=== PATIENT | female | born 1975 | race Caucasian/White ===

== ENCOUNTER → 2017-10-30 | Outpatient (CLI) | payer MEDICARE, OTHER ==
--- NOTE | 2017-10-31 12:17 | EST ---
EXERCISE STRESS AGE: 42 SEX: F HT: 61" WT: 158 PROTOCOL: Ramírez Stress Test STAGE: 3 DURATION OF EXERCISE: 8:00 HEART RATE REST: 91 BLOOD PRESSURE REST: 112/58 MAXIMUM HEART RATE ACHIEVED: 161 MAXIMUM BLOOD PRESSURE: 151/62 85% MPHR: 152 100% MPHR: 179 METS: 9.5 INDICATIONS: Chest pain. CLINICAL INFORMATION: Patient was exercised for a total period of 8 minutes, a peak heart rate of 161 was achieved. Maximum blood pressure 151/62 mmHg was noted. Patient did not complain of any chest pain during the test, the resting EKG shows normal sinus rhythm with normal IA interval and QRS duration and normal ST-T waves. No ST-segment depression suggestive of ischemia is noted. FINAL IMPRESSION: This exercise test is not suggestive of ischemia. Patient's exercise tolerance is average. Patient did not complain of any chest pain during the test. MMLINL / IJN: [id number] /
== END | disposition home or self-care (01) ==
LOC: RADNMMAIN 11:05
PROVIDERS: ATTEND Family Medicine
DX: R07.9 Chest pain, unspecified (principal)
CPT/HCPCS: 93017

== ENCOUNTER 2019-04-25 12:40 | Inpatient (IN) | payer OTHER ==
[2019-04-25] MEDS ORDERED: SODIUM CHLORIDE 0.9% 1,000 ML IV STA (13:01)
[2019-04-25] MEDS ORDERED: KETOROLAC 30 MG/ML 1 ML VIAL IVP STA (13:01)
--- NOTE | 2019-04-25 13:28 | ED ---
General Adult HPI - General Chief complaint: Fever Stated complaint: chest heaviness/fever Time Seen by Provider: 04/25/19 13:00 Source: patient Mode of arrival: ambulatory Limitations: no limitations - History of Present Illness Initial comments: Dictation was produced using [employer] dictation software. please excuse any grammatical, word or spelling errors. Chief Complaint: 43-year-old female presents with cough, shortness of breath and total body myalgias History of Present Illness: 43-year-old female she presents with cough, weakness and total body pain for the last one week. Patient states his mind she woke up and felt like her symptoms were not improving she decided come to the emergency department. Patient reports she has a history of rheumatoid arthritis however she does not take any immunotherapy medications. Patient denies any other significant comorbidities. She does however report history of pneumonia in the past. Patient denies any abdominal pain. Denies any rash. Denies any sore throat The ROS documented in this emergency department record has been reviewed and confirmed by me. Those systems with pertinent positive or negative responses have been documented in the HPI. All other systems are other negative and/or noncontributory. PHYSICAL EXAM: General Impression: Alert and oriented x3, not in acute distress HEENT: Normocephalic atraumatic, extra-ocular movements intact, pupils equal and reactive to light bilaterally, mucous membranes moist, nonerythematous oropharynx Cardiovascular: Heart regular rate and rhythm, S1&S2 audible, no murmurs, rubs or gallops Chest: Lungs clear to auscultation bilaterally, no rhonchi, no wheeze, no rales Abdomen: Bowel sounds present, abdomen soft, non-tender, non-distended, no organomegaly Musculoskeletal: Pulses present and equal in all extremities, no peripheral edema Motor: no focal deficits noted Neurological: CN II-XII grossly intact, no focal motor or sensory deficits noted Skin: Intact with no visualized rashes Psych: Normal affect and mood ED course: 43-year-old female presents with myalgias, fever and URI type symptoms signs upon arrival shows temperature 12.9, heart rate of 119, so vital signs within acceptable limits Laboratory evaluation obtained. Mild leukocytosis of 10.8. Rest of CBC unremarkable. Metabolic panel is negative. Urinalysis is negative. Flu test is negative. Chest x-rays obtained showing multifocal pneumonia. Patient reevaluated at bedside. Clinical concern for early sepsis secondary to p neumonia. Blood culture sent. Patient treated for community acquired pneumonia. She denies any recent hospitalizations. No HCAP Risk. Discussed patient case with Dr. Richmond who is willing to accept patient's care - Related Data Home Medications Medication Instructions Recorded Confirmed ALPRAZolam [Xanax] 0.5 mg PO HS 04/07/14 06/02/14 Hydrocodone/Acetaminophen [[place] 1 each PO Q8H PRN 04/07/14 06/02/14 10-325] Ibuprofen [Motrin] 800 mg PO Q8HR PRN 05/06/14 06/02/14 [place] 1 tab PO DAILY 06/02/14 06/02/14 Allergies Allergy/AdvReac Type Severity Reaction Status Date / Time morphine Allergy Itching Verified 04/25/19 12:49 Sulfa (Sulfonamide Allergy Rash/Hives Verified 04/25/19 12:49 Antibiotics) sulfamethoxazole Allergy Rash/Hives Verified 04/25/19 12:49 [From Bactrim] trimethoprim [From Bactrim] Allergy Rash/Hives Verified 04/25/19 12:49 Review of Systems ROS Statement: Those systems with pertinent positive or pertinent negative responses have been documented in the HPI. ROS Other: All systems not noted in ROS Statement are negative. Past Medical History Past Medical History: Pneumonia Additional Past Medical History / Comment(s): past hx. pneumonia, IBS, hx migraines, just dx. w/cyst on ovary & thyroid-FU w/family dr this week, also some abn. lab tests History of Any Multi-Drug Resistant Organisms: None Reported Past Surgical History: Back Surgery, Orthopedic Surgery Past Anesthesia/Blood Transfusion Reactions: Motion Sickness, Postoperative Nausea & Vomiting (PONV) Additional Past Anesthesia/Blood Transfusion Reaction / Comment(s): felt like had flu sx. after last pain procedure for 48 hours Past Psychological History: No Psychological Hx Reported Smoking Status: Current every day smoker Past Alcohol Use History: None Reported Past Drug Use History: None Reported General Exam Limitations: no limitations Course Vital Signs 04/25/19 04/25/19 12:46 14:41 Temperature 102.9 F H 101.6 F H Pulse Rate 119 H 112 H Respiratory 18 18 Rate Blood Pressure 130/83 111/69 O2 Sat by Pulse 98 95 Oximetry Medical Decision Making - Lab Data Result diagrams: 04/25/19 13:30 04/25/19 13:30 Lab Results 04/25/19 04/25/19 04/25/19 Range/Units 12:50 13:30 13:30 WBC 10.8 H (3.8-10.6) k/uL RBC 4.61 (3.80-5.40) m/uL Hgb 13.6 (11.4-16.0) gm/dL Hct 41.3 (34.0-46.0) % MCV 89.6 (80.0-100.0) fL MCH 29.4 (25.0-35.0) pg MCHC 32.8 (31.0-37.0) g/dL RDW 12.9 (11.5-15.5) % Plt Count 213 (150-450) k/uL Neutrophils % 89 % Lymphocytes % 7 % Monocytes % 2 % Eosinophils % 1 % Basophils % 0 % Neutrophils # 9.6 H (1.3-7.7) k/uL Lymphocytes # 0.8 L (1.0-4.8) k/uL Monocytes # 0.2 (0-1.0) k/uL Eosinophils # 0.1 (0-0.7) k/uL Basophils # 0.0 (0-0.2) k/uL Sodium 135 L (137-145) mmol/L Potassium 3.7 (3.5-5.1) mmol/L Chloride 104 (98-107) mmol/L Carbon Dioxide 22 (22-30) mmol/L Anion Gap 9 mmol/L BUN 8 (7-17) mg/dL Creatinine 0.66 (0.52-1.04) mg/dL Est GFR (CKD-EPI)AfAm >90 (>60 ml/min/1.73 sqM) Est GFR (CKD-EPI)NonAf >90 (>60 ml/min/1.73 sqM) Glucose 111 H (74-99) mg/dL Plasma Lactic Acid [place] (0.7-2.0) mmol/L Calcium 8.5 (8.4-10.2) mg/dL Urine Color Urine Appearance (Clear) Urine pH (5.0-8.0) Ur Specific [place] (1.001-1.035) Urine Protein (Negative) Urine Glucose (UA) (Negative) Urine Ketones (Negative) Urine Blood (Negative) Urine Nitrite (Negative) Urine Bilirubin (Negative) Urine Urobilinogen (<2.0) mg/dL Ur Leukocyte Esterase (Negative) Urine RBC (0-5) /hpf Urine WBC (0-5) /hpf Ur Squamous Epith Cells (0-4) /hpf Urine Mucus (None) /hpf Influenza Type A RNA Not Detected (Not Detectd) Influenza Type B (PCR) Not Detected (Not Detectd) 04/25/19 04/25/19 Range/Units 13:30 14:30 WBC (3.8-10.6) k/uL RBC (3.80-5.40) m/uL Hgb (11.4-16.0) gm/dL Hct (34.0-46.0) % MCV (80.0-100.0) fL MCH (25.0-35.0) pg MCHC (31.0-37.0) g/dL RDW (11.5-15.5) % Plt Count (150-450) k/uL Neutrophils % % Lymphocytes % % Monocytes % % Eosinophils % % Basophils % % Neutrophils # (1.3-7.7) k/uL Lymphocytes # (1.0-4.8) k/uL Monocytes # (0-1.0) k/uL Eosinophils # (0-0.7) k/uL Basophils # (0-0.2) k/uL Sodium (137-145) mmol/L Potassium (3.5-5.1) mmol/L Chloride (98-107) mmol/L Carbon Dioxide (22-30) mmol/L Anion Gap mmol/L BUN (7-17) mg/dL Creatinine (0.52-1.04) mg/dL Est GFR (CKD-EPI)AfAm (>60 ml/min/1.73 sqM) Est GFR (CKD-EPI)NonAf (>60 ml/min/1.73 sqM) Glucose (74-99) mg/dL Plasma Lactic Acid [place] 2.0 (0.7-2.0) mmol/L Calcium (8.4-10.2) mg/dL Urine Color Light Yellow Urine Appearance Cloudy H (Clear) Urine pH 7.0 (5.0-8.0) Ur Specific [place] 1.014 (1.001-1.035) Urine Protein Negative (Negative) Urine Glucose (UA) Negative (Negative) Urine Ketones Negative (Negative) Urine Blood Trace H (Negative) Urine Nitrite Negative (Negative) Urine Bilirubin Negative (Negative) Urine Urobilinogen <2.0 (<2.0) mg/dL Ur Leukocyte Esterase Negative (Negative) Urine RBC 3 (0-5) /hpf Urine WBC 1 (0-5) /hpf Ur Squamous Epith Cells 1 (0-4) /hpf Urine Mucus Rare H (None) /hpf Influenza Type A RNA (Not Detectd) Influenza Type B (PCR) (Not Detectd) Disposition Clinical Impression: Pneumonia Disposition: ADMITTED IP TO THIS [facility] Condition: Fair Referrals: Stephen Ray DO [Primary Care Provider] - 1-2 days Decision Time: 14:59
[2019-04-25 13:48] LABS: African American GFR (CKD) >90 (>60 ml/min/1.73 sqM); Anion Gap 9 mmol/L; Blood Urea Nitrogen 8 mg/dL (7-17); Calcium 8.5 mg/dL (8.4-10.2); Carbon Dioxide 22 mmol/L (22-30); Chloride 104 mmol/L (98-107); Glucose 111 mg/dL (74-99); Non-African American GFR(CKD) >90 (>60 ml/min/1.73 sqM); Potassium 3.7 mmol/L (3.5-5.1); Sodium 135 mmol/L (137-145)
[2019-04-25 13:50] LABS: Basophils % (A) 0 %; Eosinophils # (A) 0.1 k/uL (0-0.7); Eosinophils % (A) 1 %; HCT 41.3 % (34.0-46.0); HGB 13.6 gm/dL (11.4-16.0); Lymphocytes # (A) 0.8 k/uL (1.0-4.8); Lymphocytes % (A) 7 %; MCH 29.4 pg (25.0-35.0); MCHC 32.8 g/dL (31.0-37.0); MCV 89.6 fL (80.0-100.0); Mean Platelet Volume 8.1; Monocytes # (A) 0.2 k/uL (0-1.0); Monocytes % (A) 2 %; Neutrophils # (A) 9.6 k/uL (1.3-7.7); Neutrophils % (A) 89 %; Platelet Count 213 k/uL (150-450); RBC 4.61 m/uL (3.80-5.40); RDW 12.9 % (11.5-15.5); WBC 10.8 k/uL (3.8-10.6)
--- NOTE | 2019-04-25 14:13 | XR ---
EXAMINATION TYPE: XR chest 2V DATE OF EXAM: 04/25/2019 COMPARISON: 12/30/2015 HISTORY: Cough, weakness and fever TECHNIQUE: Frontal and lateral views of the chest are obtained. FINDINGS: There there are new right perihilar and right basilar opacities. Remainder the lungs are w ell aerated. Cardiomediastinal silhouette is within normal limits. Osseous structures are grossly int act. No pneumothorax or pleural effusion. IMPRESSION: New right perihilar and right basilar opacities most radiographically compatible with mu ltifocal pneumonia.
[2019-04-25 14:39] LABS: Appearance,Urine Cloudy (Clear); Bilirubin,Urine Negative (Negative); Blood,Urine Trace (Negative); Color,Urine Light Yellow; Glucose,Urine (UA) Negative (Negative); Ketones,Urine Negative (Negative); Leukocyte Esterase,Urine Negative (Negative); Mucus,Urine Rare /hpf; Nitrite,Urine Negative (Negative); Protein,Urine Negative (Negative); RBC,Urine 3 /hpf (0-5); Specific Gravity,Urine 1.014 (1.001-1.035); Squamous Epithelial Cell,Urine 1 /hpf (0-4); Urobilinogen,Urine <2.0 mg/dL (<2.0); WBC,Urine 1 /hpf (0-5)
[2019-04-25] MEDS ORDERED: ACETAMINOPHEN TAB 500 MG TAB PO STA (14:43)
[2019-04-25] MEDS ORDERED: AZITHROMYCIN 500 MG in SODIUM CHLORIDE 0.9% 250 ML IVPB STA (14:43)
[2019-04-25] MEDS ORDERED: cefTRIAXone IN SWFI 1,000 MG/10 ML SYRINGE IVP STA (14:43)
[2019-04-25] MEDS ORDERED: PNEUMONIA PROTOCOL UTILIZED 1 EACH MISC PO PRN (14:55)
[2019-04-25] MEDS ORDERED: HYDROcodone/APAP 10-325MG 1 EACH TAB PO PRN (14:56)
[2019-04-25] MEDS ORDERED: KETOROLAC 30 MG/ML 1 ML VIAL IVP SCH (18:00)
[2019-04-25] MEDS: KETOROLAC 30 MG/ML 1 ML VIAL IVP PRN (18:17)
[2019-04-25] MEDS: ALPRAZolam 0.5 MG TAB PO SCH (20:02)
[2019-04-25] MEDS: ACETAMINOPHEN TAB 325 MG TAB PO PRN (22:52)
[2019-04-26] MEDS: ACETAMINOPHEN TAB 325 MG TAB PO PRN ×3 (04:36→22:25)
[2019-04-26] MEDS: KETOROLAC 30 MG/ML 1 ML VIAL IVP PRN ×2 (04:37→17:55)
--- NOTE | 2019-04-26 07:30 | XR ---
EXAMINATION TYPE: XR chest 2V DATE OF EXAM: 04/26/2019 HISTORY: pneumonia. REFERENCE: Previous study dated 04/25/2019. FINDINGS: There is a worsening right basilar infiltrate. There is a small right IMPRESSION: WORSENING RIGHT BASILAR PNEUMONIA WITH A SMALL, CONCOMITANT EFFUSION.
--- NOTE | 2019-04-26 14:06 | P.HPIM ---
History of Present Illness H&P Date: 04/26/19 Chief Complaint: cough, shortness of breath and total body myalgias Patient is a 43-year-old female with a known history of rheumatoid arthritis- currently not on any immunotherapy, hyperlipidemia, GERD, fibromyalgia, IBS and migraine headaches and ongoing nicotine addiction came to ER with complaints of fever, cough, shortness of breath and generalized body aches since last Sunday. Patient was still having fever and her symptoms were not improving which made her to come to the ER. Denied any sore throat. Patient says that her is sick recently with upper respiratory infection but got better. Denied any complaints of chest pain. Patient does have shortness of breath. No nausea vomiting or diarrhea. No abdominal pain. Denied any dysuria or hematuria. Denied any recent travel. Chest x-ray showed new right perihilar and right basilar opacities most r adiographically compatible with multifocal pneumonia. WBC 10.8 UA negative for infection. Influenza PCR negative T-max was 102.9 and patient was tachycardic on admission. Review of Systems Constitutional does have fever or chills . Generalized body aches and malaise. Abdomen: Patient denied nausea vomiting and diarrhea and abdominal pain. Cardiovascular: Patient denies any chest pain or short of breath no palpitations. Respiratory: Patient does have cough without sputum production. Patient does have shortness of breath Neurologic: Patient denied any numbness or tingling headache. Musculoskeletal: Patient denies any complaints of joint swelling or deformity. Skin: Negative Psychiatric: Negative Endocrine: No heat or cold intolerance. No recent weight gain. Genitourinary: No dysuria or hematuria. All other 14 point ROS negative except the above Past Medical History Past Medical History: Pneumonia Additional Past Medical History / Comment(s): past hx. pneumonia, IBS, hx migraines History of Any Multi-Drug Resistant Organisms: None Reported Past Surgical History: Back Surgery, Orthopedic Surgery Past Anesthesia/Blood Transfusion Reactions: Motion Sickness, Postoperative Nausea & Vomiting (PONV) Additional Past Anesthesia/Blood Transfusion Reaction / Comment(s): felt like had flu sx. after last pain procedure for 48 hours Past Psychological History: No Psychological Hx Reported Smoking Status: Current every day smoker Past Alcohol Use History: None Reported Past Drug Use History: None Reported Medications and Allergies Home Medications Medication Instructions Recorded Confirmed Type Ibuprofen [Motrin] 800 mg PO Q8HR PRN 05/06/14 04/25/19 History Omeprazole 20 mg PO DAILY 04/25/19 04/25/19 History Pramipexole [Mirapex] 1 mg PO BID 04/25/19 04/25/19 History Allergies Allergy/AdvReac Type Severity Reaction Status Date / Time morphine Allergy Itching Verified 04/25/19 16:37 Sulfa (Sulfonamide Allergy Rash/Hives Verified 04/25/19 16:37 Antibiotics) sulfamethoxazole Allergy Rash/Hives Verified 04/25/19 16:37 [From Bactrim] trimethoprim [From Bactrim] Allergy Rash/Hives Verified 04/25/19 16:37 Physical Exam Vitals: Vital Signs Temp Pulse Pulse Resp BP BP Pulse Ox 04/26/19 11:40 98.5 F 98 18 99/73 97 04/26/19 08:05 98.0 F 86 18 99/63 93 L 04/26/19 05:47 97.9 F 89 93 L 04/26/19 04:34 101.1 F H 04/26/19 00:00 99.5 F 93 20 104/72 95 04/25/19 23:32 101.0 F H 04/25/19 22:50 102.2 F H 04/25/19 22:20 100.8 F H 04/25/19 19:37 98.3 F 108 H 18 117/75 100 04/25/19 18:36 107 H 04/25/19 15:59 99.3 F 04/25/19 15:38 99.2 F 107 H 18 90/56 92 L 04/25/19 14:41 101.6 F H 112 H 18 111/69 95 04/25/19 12:46 102.9 F H 119 H 18 130/83 98 Intake and Output 04/25/19 04/26/19 04/26/19 22:59 06:59 14:59 Intake Total 1540 300 400 Balance 1540 300 400 Intake: Intake, IV Titration 1000 Amount Sodium Chloride 0.9% 1, 1000 000 ml @ 999 mls/hr IV . Q1H1M STA Rx#:[id number] Oral 540 300 400 Other: Voiding Method Toilet # Voids 2 2 # Bowel Movements 2 Weight 78.925 kg PHYSICAL EXAMINATION: Patient is lying in the bed comfortably, no acute distress, awake alert and oriented.. HEENT: Normocephalic. Neck is supple. Pupils reactive. Nostrils clear. Oral cavity is moist. Ears reveal no drainage. Neck reveals no JVD, carotid bruits, or thyromegaly. CHEST EXAMINATION: Trachea is central. Symmetrical expansion. Right sided crackles and coarse breath sounds. Scattered rhonchi. Nonlabored breathing. CARDIAC: Normal S1, S2 with no gallops. No murmurs ABDOMEN: Soft. Bowel sounds normal. No organomegaly. No abdominal bruits. Extremities: reveal no edema. No clubbing or cyanosis Neurologically awake, alert, oriented x3 with well-coordinated movements. No focal deficits noted Skin: No rash or skin lesions. Psychiatric: Coperative. Nonsuicidal Musculoskeletal: No joint swelling or deformity. Normal range of motion. Results CBC & Chem 7: 04/25/19 13:30 04/25/19 13:30 Labs: Abnormal Lab Results - Last 24 Hours (Table) 04/25/19 04/25/19 04/25/19 Range/Units 13:30 13:30 14:30 WBC 10.8 H (3.8-10.6) k/uL Neutrophils # 9.6 H (1.3-7.7) k/uL Lymphocytes # 0.8 L (1.0-4.8) k/uL Sodium 135 L (137-145) mmol/L Glucose 111 H (74-99) mg/dL Urine Appearance Cloudy H (Clear) Urine Blood Trace H (Negative) Urine Mucus Rare H (None) /hpf Thrombosis Risk Factor Assmnt - DVT/VTE Prophylaxis DVT/VTE Prophylaxis: Pharmacologic Prophylaxis ordered Assessment and Plan Assessment: Acute multifocal pneumonia Possible underlying viral pneumonia cannot be excluded. Influenza PCR negative. Sepsis secondary to above Rheumatoid arthritis currently not on any immunosuppressive therapy. GERD Hyperlipidemia Fibromyalgia Migraine headaches IBS Currently everyday smoker DVT prophylaxis with heparin subcu Plan: Patient will be continued on IV antibiotics in the form of ceftriaxone and azithromycin. Patient was given IV hydration the ER. Currently patient is tolerating oral diet. Fever improving and is currently afebrile. Follow-up culture reports. Patient will be started on DuoNebbreathing treatments and oxygen therapy as needed. Further recommendations based on the clinical course. Smoking cessation has been counseled extensively. Time with Patient: Greater than 30
[2019-04-26] MEDS: AZITHROMYCIN 500 MG TAB PO SCH (15:43)
[2019-04-26] MEDS: HEPARIN SODIUM,PORCINE 5,000 UNIT/ML 1 ML VIAL SQ SCH ×2 (15:48→21:43)
[2019-04-26] MEDS: IPRATROPIUM-ALBUTEROL 3 ML NEB INHALATION PRN ×2 (16:33→19:33)
[2019-04-26] MEDS: SODIUM CHLORIDE 0.9% 1,000 ML IV SCH (20:53)
[2019-04-26] MEDS: ALPRAZolam 0.5 MG TAB PO SCH (21:43)
[2019-04-27] MEDS: IPRATROPIUM-ALBUTEROL 3 ML NEB INHALATION PRN ×5 (00:33→19:44)
[2019-04-27] MEDS: KETOROLAC 30 MG/ML 1 ML VIAL IVP PRN ×3 (02:39→15:09)
[2019-04-27 06:55] LABS: Basophils % (A) 0 %; Eosinophils % (A) 0 %; HCT 36.8 % (34.0-46.0); HGB 12.1 gm/dL (11.4-16.0); Lymphocytes # (A) 1.1 k/uL (1.0-4.8); Lymphocytes % (A) 11 %; MCHC 32.8 g/dL (31.0-37.0); MCV 91.4 fL (80.0-100.0); Mean Platelet Volume 8.1; Monocytes # (A) 0.3 k/uL (0-1.0); Monocytes % (A) 3 %; Neutrophils # (A) 7.9 k/uL (1.3-7.7); Neutrophils % (A) 84 %; Platelet Count 177 k/uL (150-450); RBC 4.03 m/uL (3.80-5.40); RDW 13.2 % (11.5-15.5); WBC 9.4 k/uL (3.8-10.6)
[2019-04-27 07:17] LABS: African American GFR (CKD) >90 (>60 ml/min/1.73 sqM); Anion Gap 7 mmol/L; Blood Urea Nitrogen 9 mg/dL (7-17); Calcium 8.2 mg/dL (8.4-10.2); Carbon Dioxide 22 mmol/L (22-30); Chloride 110 mmol/L (98-107); Glucose 109 mg/dL (74-99); Non-African American GFR(CKD) >90 (>60 ml/min/1.73 sqM); Potassium 3.9 mmol/L (3.5-5.1); Sodium 139 mmol/L (137-145)
[2019-04-27] MEDS: HEPARIN SODIUM,PORCINE 5,000 UNIT/ML 1 ML VIAL SQ SCH ×3 (09:31→20:56)
[2019-04-27] MEDS ORDERED: ONDANSETRON 4 MG/2 ML VIAL IVP PRN (10:49)
[2019-04-27] MEDS: ACETAMINOPHEN TAB 325 MG TAB PO PRN ×2 (11:02→23:46)
[2019-04-27] MEDS: AZITHROMYCIN 500 MG TAB PO SCH (15:00)
[2019-04-27] MEDS: FAMOTIDINE 20 MG TAB PO SCH (20:32)
[2019-04-27] MEDS: ALPRAZolam 0.5 MG TAB PO SCH (20:32)
--- NOTE | 2019-04-27 23:27 | P.PN ---
Subjective Progress Note Date: 04/27/19 Principal diagnosis: multifocal pneumonia Acute viral illness Patient is a 43-year-old female with a known history of rheumatoid arthritis- currently not on any immunotherapy, hyperlipidemia, GERD, fibromyalgia, IBS and migraine headaches and ongoing nicotine addiction came to ER with complaints of fever, cough, shortness of breath and generalized body aches since last Sunday. Patient was still having fever and her symptoms were not improving which made her to come to the ER. Denied any sore throat. Patient says that her is sick recently with upper respiratory infection but got better. Denied any complaints of chest pain. Patient does have shortness of breath. No nausea vomiting or diarrhea. No abdominal pain. Denied any dysuria or hematuria. Denied any recent travel. Chest x-ray showed new right perihilar and right basilar opacities most radiographically compatible with multifocal pneumonia. WBC 10.8 UA negative for infection. Influenza PCR negative T-max was 102.9 and patient was tachycardic on admission. 04/27/2019 patient says that she is feeling weak and nauseated today. Wasn't able to tolerate oral diet in the morning. Patient is still having low-grade fever with T-max of 100.3 Otherwise cultures are negative. Leukocytosis improved. patient says that her is tested positive for influenza and is in the hospital as well. Influenza PCR negative. No complaints of chest pain or worsening shortness of breath. no complaints of abdominal pain. No diarrhea. Patient is being continued on breathing treatments and antibiotics ceftriaxone and azithromycin. No wheezing or rhonchi noted on the exam. Active Medications Acetaminophen (Tylenol Tab) 650 mg PO Q6H PRN PRN Reason: Fever Last Admin: 04/27/19 11:02 Dose: 650 mg Documented by: Albuterol/Ipratropium (Duoneb 0.5 Mg-3 Mg/3 Ml Soln) 3 ml INHALATION RT-Q4H PRN PRN Reason: Shortness Of Breath Or Wheezing Last Admin: 04/27/19 19:44 Dose: 3 ml Documented by: Alprazolam (Xanax) 0.5 mg PO HS TERE Last Admin: 04/27/19 20:32 Dose: 0.5 mg Documented by: Azithromycin (Zithromax) 500 mg PO DAILY@1500 TERE Last Admin: 04/27/19 15:00 Dose: 500 mg Documented by: Famotidine (Pepcid) 20 mg PO BID [facility] Last Admin: 04/27/19 20:32 Dose: 20 mg Documented by: Heparin Sodium (Porcine) (Heparin) 5,000 unit SQ Q8HR [facility] Last Admin: 04/27/19 20:56 Dose: Not Given Documented by: Ceftriaxone Sodium 1 gm/ (Sodium Chloride) 50 mls @ 100 mls/hr IVPB Q24H [facility] Last Admin: 04/27/19 15:00 Dose: 100 mls/hr Documented by: Sodium Chloride (Saline 0.9%) 1,000 mls @ 50 mls/hr IV .Q20H [facility] Last Admin: 04/26/19 20:53 Dose: 20 mls/hr Documented by: Ketorolac Tromethamine (Toradol) 30 mg IVP Q6HR PRN PRN Reason: FEVER AND/OR PAIN Stop: 04/29/19 17:02 Last Admin: 04/27/19 15:09 Dose: 30 mg Documented by: Miscellaneous Information (Pneumonia Protocol Utilized) 1 each PO ONCE PRN PRN Reason: Per Protocol Ondansetron HCl (Zofran) 4 mg IVP Q6HR PRN PRN Reason: Nausea And Vomiting Last Admin: 04/27/19 11:02 Dose: 4 mg Documented by: Objective - Vital Signs Vital signs: Vital Signs Temp 98.1 F 04/27/19 13:52 Pulse 81 04/27/19 13:52 Resp 16 04/27/19 13:52 BP 106/70 04/27/19 13:52 Pulse Ox 94 L 04/27/19 13:52 Intake & Output 04/26/19 04/27/19 04/27/19 18:59 06:59 18:59 Intake Total 700 740 240 Output Total 200 Balance 700 740 40 Intake: Intake, IV Titration 200 Amount Sodium Chloride 0.9% 1, 200 000 ml @ 20 mls/hr IV . Q24H [facility] Rx#:[id number] Oral 700 540 240 Output: Urine 200 Other: # Voids 1 1 1 - Exam PHYSICAL EXAMINATION: Patient is lying in the bed comfortably, no acute distress, awake alert and oriented.lethargic.. HEENT: Normocephalic. Neck is supple. Pupils reactive. Nostrils clear. Oral cavity is moist. Ears reveal no drainage. Neck reveals no JVD, carotid bruits, or thyromegaly. CHEST EXAMINATION: Trachea is central. Symmetrical expansion. bilateraldiffuse fine crackles present. No wheezing. Nonlabored breathing.. CARDIAC: Normal S1, S2 with no gallops. No murmurs ABDOMEN: Soft. Bowel sounds normal. No organomegaly. No abdominal bruits. Extremities: reveal no edema. No clubbing or cyanosis Neurologically awake, alert, oriented x3 with well-coordinated movements. No f ocal deficits noted Skin: No rash or skin lesions. Psychiatric: Coperative. Nonsuicidal Musculoskeletal: No joint swelling or deformity. Normal range of motion. - Labs CBC & Chem 7: 04/27/19 06:07 04/27/19 06:07 Labs: Abnormal Lab Results - Last 24 Hours (Table) 04/27/19 04/27/19 Range/Units 06:07 06:07 Neutrophils # 7.9 H (1.3-7.7) k/uL Chloride 110 H (98-107) mmol/L Glucose 109 H (74-99) mg/dL Calcium 8.2 L (8.4-10.2) mg/dL Microbiology - Last 24 Hours (Table) 04/25/19 14:57 Blood Culture - Preliminary Blood No Growth after 24 hours Assessment and Plan Assessment: Acute multifocal pneumonia Possible underlying viral pneumonia cannot be excluded. Influenza PCR negative. Sepsis secondary to above Rheumatoid arthritis currently not on any immunosuppressive therapy. GERD Hyperlipidemia Fibromyalgia Migraine headaches IBS Currently everyday smoker DVT prophylaxis with heparin subcu Plan: Patient will be continued on IV antibiotics in the form of ceftriaxone and azithromycin. Patient was given IV hydration the ER. Currently patient is tolerating oral diet. Fever improving and is currently afebrile. Follow-up culture reports. Patient will be continued on DuoNebbreathing treatments and oxygen therapy as needed. Further recommendations based on the clinical course. Smoking cessation has been counseled extensively. Time with Patient: Greater than 30
[2019-04-28] MEDS: SODIUM CHLORIDE 0.9% 1,000 ML IV SCH ×2 (01:08→15:51)
[2019-04-28] MEDS: IPRATROPIUM-ALBUTEROL 3 ML NEB INHALATION PRN (07:49)
[2019-04-28] MEDS: HEPARIN SODIUM,PORCINE 5,000 UNIT/ML 1 ML VIAL SQ SCH ×3 (10:30→20:28)
[2019-04-28] MEDS: FAMOTIDINE 20 MG TAB PO SCH (10:30)
[2019-04-28] MEDS: OSELTAMIVIR 75 MG CAP PO SCH ×2 (14:43→20:27)
[2019-04-28] MEDS ORDERED: IBUPROFEN 400 MG TAB PO PRN (15:38)
[2019-04-28] MEDS ORDERED: TEMAZEPAM 15 MG CAP PO PRN (15:39)
[2019-04-28] MEDS ORDERED: BENZOCAINE/MENTHOL LOZENG 1 EACH LOZENGE MUCOUS MEM PRN (15:55)
[2019-04-28] MEDS: PANTOPRAZOLE 40 MG TABLET PO SCH (15:57)
[2019-04-28] MEDS: AZITHROMYCIN 500 MG TAB PO SCH (15:58)
[2019-04-28] MEDS: IPRATROPIUM-ALBUTEROL 3 ML NEB INHALATION SCH ×2 (16:16→21:08)
--- NOTE | 2019-04-28 18:28 | PN ---
PROGRESS NOTE DATE OF SERVICE: 04/28/2019 This 43-year-old woman who was admitted with significant pneumonia on the right side also had possible underlying influenza. The patient's , who is also admitted to the hospital, has tested positive. The patient might have had contact with somebody at work who might have been confirmed with influenza, according to her. There is no history of any fever, rigor, chills. Recent chest x-ray showed some worsening of the right pneumonia with some pleural effusion. Patient has incessant cough. Past medical history reviewed. REVIEW OF SYSTEMS: CARDIOVASCULAR SYSTEM: No angina, palpitations. RESPIRATORY SYSTEM: As mentioned earlier. GI: As mentioned earlier. : No dysuria or retention. NERVOUS SYSTEM: No numbness, weakness. CURRENT MEDICATIONS: Reviewed. They include: 1. Tylenol p.r.n. 2. DuoNeb q.i.d. and p.r.n. 3. Xanax 0.5 at bedtime. 4. Zithromax 500 mg p.o. daily. 5. Pulmicort 1 mg b.i.d. 6. Rocephin 1 gram daily. 7. Perforomist 20 mcg b.i.d. 8. Heparin 5000 units subcutaneously q.8. 9. Ibuprofen 400 mg q.8. 10.Toradol 30 mg q.4. 11.Zofran. 12.Tamiflu 75 mg p.o. b.i.d. 13.Protonix 40 mg daily. 14.Mirapex 1 mg p.o. b.i.d. 15.Restoril 15 mg at bedtime p.r.n. PHYSICAL EXAMINATION: Patient is alert, oriented x3. Pulse is 86, blood pressure 122/81, respirations 17, temperature 100.8, pulse ox 90% on room air. HEENT: Conjunctivae normal. Oral mucosa moist. NECK: No jugular venous distention. No carotid bruit. No lymph node enlargement. CARDIOVASCULAR SYSTEM: S1, S2 muffled. RESPIRATORY SYSTEM: Breath sounds diminished at the bases. Bilateral scattered rhonchi and crackles. ABDOMEN: Soft, non-tender. LEGS: No edema. No swelling. NERVOUS SYSTEM: No focal deficit. LABS: Labs at this time show WBC 9.4, hemoglobin 12.1 and sodium 139, potassium 3.9. ASSESSMENT: 1. Acute right lower lobe pneumonia with possible effusion, with possibly Gram- negative; possibly viral pneumonia. 2. Possible influenza. 3. Possible sepsis secondary to above, present on admission. 4. Rheumatoid arthritis, not on any immunosuppressant therapy. 5. Gastroesophageal reflux disease. 6. Hyperlipidemia. 7. Fibromyalgia. 8. Migraine headaches. 9. History of irritable bowel syndrome. 10.History of continued ongoing nicotine dependence. 11.Deep venous thrombosis prophylaxis. 12.Gastrointestinal prophylaxis. RECOMMENDATIONS AND DISCUSSION: In this 43-year-old woman who presented with multiple complex medical issues, we will monitor the patient closely, continue the current medications, continue with symptomatic treatment. The chest x-ray is slightly worsened today. I would recommend optimizing the bronchodilator treatment. Continue the antibiotics. Obtain cultures. I would also recommend infectious disease and pulmonary consultations. DVT prophylaxis. See orders for further details. Prognosis guarded because of multiple complex medical issues. Empiric Tamiflu is also recommended because of continued fever. Further recommendations to follow. MMODL / IJN: [id number] /
[2019-04-28] MEDS: ALPRAZolam 0.5 MG TAB PO SCH (20:27)
[2019-04-28] MEDS: PRAMIPEXOLE 1 MG TAB PO SCH (20:27)
[2019-04-28] MEDS: FORMOTEROL FUMARATE 20 MCG/2 ML NEBU INHALATION SCH (21:08)
[2019-04-28] MEDS: BUDESONIDE 1 MG/2 ML NEBU INHALATION SCH (21:08)
--- NOTE | 2019-04-28 22:06 | CONS ---
CONSULTATION PULMONARY/CRITICAL CARE CONSULTATION: REASON FOR CONSULTATION: Pneumonia. This is a 43-year-old female who began to get sick last Sunday about a week ago. Her complaints included fever, cough, chest congestion, shortness of breath and body aches. It progressed through the week last week to the point that she got much worse, and on April 25, she ended up coming into the emergency room, where she was evaluated and told that she had pneumonia. Her initial chest x-ray showed a small infiltrate in the right lower lobe, and a more recent chest x-ray shows a more significant infiltrate. There also may be a pleural effusion. The patient is currently just taking a few medications at home, including Prilosec, Xanax, [place], Motrin and dat root. The patient is not feeling any better since when she came into the hospital and may actually feel a bit worse. Again, her complaints included shortness of breath, chest congestion, cough, minimal phlegm production, fever, chills, muscle aches, joint aches. MEDICAL HISTORY: Her medical history is positive for rheumatoid arthritis and acid reflux disease. She currently does not take any medications for her rheumatoid arthritis. She was on Plaquenil for a long period of time, she tells us. She has had a previous episode of pneumonia in the past and also bronchitis in the past. Other medical problems include migraine cephalgia, ovarian cysts, and irritable bowel syndrome. SURGICAL HISTORY: Surgical history includes back surgery and some other orthopedic procedures. SOCIAL HISTORY: Positive for ongoing daily tobacco use. She denies any alcohol or illicit drug use. HOME MEDICATIONS: Mentioned. ALLERGIES: Include MORPHINE, SULFA ANTIBIOTICS AND TRIMETHOPRIM. REVIEW OF SYSTEMS: CONSTITUTIONAL: Fever, chills, muscle aches, joint aches. NEUROLOGIC: Negative. HEENT: Negative. CARDIOVASCULAR: Negative. PULMONARY: Shortness of breath, chest congestion, cough, chest tightness and minimal phlegm production. GI: Negative. : Negative. RHEUMATOLOGIC: Negative. IMMUNOLOGIC: Negative. ENDOCRINOLOGIC: Negative. DERMATOLOGIC: Negative. PHYSICAL EXAMINATION: VITAL SIGNS: Current vital signs are reviewed. Temperature is 100.8, heart rate 96, respiratory rate 17, blood pressure 121/82, mean 95, room-air saturation 90%. GENERAL APPEARANCE: She appears in no acute distress. There is no audible wheezing, conversational dyspnea or use of accessory muscles. HEENT: HEENT examination is grossly unremarkable. Mucous membranes are moist. NECK: Supple. Full range of motion. There is no adenopathy. Neck veins are flat. CARDIOVASCULAR: Cardiovascular examination reveals regular rhythm and rate. Heart rate about 100 beats per minute. S1, S2 normal. No murmur. LUNGS: Lungs reveal coarse diffuse expiratory rhonchi. Breath sounds are equal bilaterally. There is some dullness at the right base. Some bibasilar crackles are also noted. No wheezes. ABDOMEN: Soft. Bowel sounds are heard. EXTREMITIES: Intact. No cyanosis, clubbing or edema. SKIN: Without rash. NEUROLOGIC: Neurologic examination is brief but nonfocal. LABS: Reviewed. White count 9.4, hemoglobin 12.1, hematocrit 36.8, platelet count 177,000. Sodium and potassium normal. Chloride 110. CO2 22. Anion gap is 7. BUN and creatinine were 9 and 0.64. Urine is cloudy. There is trace blood, rare mucus. Influenza studies were negative. Lactic acid was 2. RADIOLOGY: Chest x-ray shows developing and worsening infiltrate at the right lung base. There also may be a right-sided pleural effusion. MEDICATIONS: Medications are reviewed. She is on Zithromax and Rocephin. She is on Xanax, Tylenol, Pepcid, subcutaneous heparin, updrafts and Tamiflu. She did not test positive for influenza. Apparently her significant other and/or tested positive. ASSESSMENT: 1. Community-acquired pneumonia, right lower lobe, with associated right-sided pleural effusion. 2. Possible underlying chronic obstructive pulmonary disease from previous tobacco use. 3. History of rheumatoid arthritis, currently not on immunotherapy. 4. History of irritable bowel syndrome. 5. History of migraine cephalgia. 6. History of gastroesophageal reflux disease. 7. Ongoing tobacco use with nicotine addiction. 8. Previous episodes of both bronchitis and pneumonia. PLAN: I will add some formoterol and Pulmicort. No steroids are necessary. Antibiotics are fine. Will continue to follow. We should put a nicotine patch on this patient. Follow- up chest x-ray in the morning. MMODL / IJN: [id number] /
--- NOTE | 2019-04-28 23:45 | P.CONS ---
History of Present Illness - Reason for Consult Consult date: 04/28/19 pneumonia Requesting physician: Bisi Silverio - Chief Complaint cough and body aches x few days - History of Present Illness Patient is a 43-year-old female presenting to the ER at [facility] on April 25, 2019 with chief complaints of cough generalized body weakness and shortness of breath that has been going on for about a week before she presented to the hospital patient be complaining of fever with rigors and chills no significant urinary symptom no nausea no vomiting no abdominal pain no diarrhea on arrival to the ER the patient did have a fever of 102.9 F patient was tachycardic white count mild elevated 10.8 influenza PCR was nega tive urine was negative patient did have a chest x-ray which showed new right perihilar and right basilar opacity compatible with multifocal pneumonia patient has been treated with Rocephin 1 g daily along with oral Zithromax repeat x-ray and now showing worsening of the pneumonia hence infectious was consulted for further recommendation about antibiotic therapy. Review of Systems Positive point has been mentioned in HPI rest of the systems are negative Past Medical History Past Medical History: Pneumonia Additional Past Medical History / Comment(s): past hx. pneumonia, IBS, hx migraines History of Any Multi-Drug Resistant Organisms: None Reported Past Surgical History: Back Surgery, Orthopedic Surgery Past Anesthesia/Blood Transfusion Reactions: Motion Sickness, Postoperative Nausea & Vomiting (PONV) Additional Past Anesthesia/Blood Transfusion Reaction / Comm: felt like had flu sx. after last pain procedure for 48 hours Past Psychological History: No Psychological Hx Reported Smoking Status: Current every day smoker Past Alcohol Use History: None Reported Past Drug Use History: None Reported Medications and Allergies Home Medications Medication Instructions Recorded Confirmed Type Ibuprofen [Motrin] 800 mg PO Q8HR PRN 05/06/14 04/25/19 History Omeprazole 20 mg PO DAILY 04/25/19 04/25/19 History Pramipexole [Mirapex] 1 mg PO BID 04/25/19 04/25/19 History Allergies Allergy/AdvReac Type Severity Reaction Status Date / Time morphine Allergy Itching Verified 04/25/19 16:37 Sulfa (Sulfonamide Allergy Rash/Hives Verified 04/25/19 16:37 Antibiotics) sulfamethoxazole Allergy Rash/Hives Verified 04/25/19 16:37 [From Bactrim] trimethoprim [From Bactrim] Allergy Rash/Hives Verified 04/25/19 16:37 Physical Exam Vitals: Vital Signs Temp Pulse Pulse Resp BP Pulse Ox 04/28/19 14:25 98.9 F 90 17 121/74 90 L 04/28/19 08:03 96 04/28/19 07:49 100 04/28/19 07:35 100.8 F H 86 17 121/82 90 L 04/28/19 02: 98.6 F 89 90 L 04/28/19 02:09 98.9 F 89 20 115/76 92 L 04/27/19 23:41 102.3 F H 81 93 L 04/27/19 23:09 100.3 F H 87 93 L 04/27/19 22:50 93 L 04/27/19 22:03 98.6 F 87 20 130/74 94 L 04/27/19 21:06 97.8 F 04/27/19 20:20 18 04/27/19 19:55 73 04/27/19 19:44 73 95 Intake and Output 04/28/19 04/28/19 04/28/19 06:59 14:59 22:59 Intake Total 990 Balance 990 Intake: Intake, IV Titration 400 Amount Sodium Chloride 0.9% 1, 400 000 ml @ 50 mls/hr IV . Q20H [facility] Rx#:[id number] Oral 590 Other: Voiding Method Toilet # Voids 1 2 GENERAL DESCRIPTION: Middle-aged female lying in bed, no distress. No tachypnea or accessory muscle of respiration use. HEENT: Shows Pallor , no scleral icterus. Oral mucous membrane is dry. NECK: Trachea central, no thyromegaly. LUNGS: Unlabored breathing. Coarse breath sounds bases bilaterally. No wheeze or crackle. HEART: S1, S2, regular rate and rhythm. ABDOMEN: Soft, no tenderness , guarding or rigidity EXTREMITIES: No edema of feet. SKIN: No rash, no masses palpable. NEUROLOGICAL: The patient is awake, alert, oriented x3, mood and affect normal. Results CBC & Chem 7: 04/27/19 06:07 04/27/19 06:07 Labs: Microbiology - Last 24 Hours (Table) 04/25/19 14:57 Blood Culture - Preliminary Blood No Growth after 48 hours Assessment and Plan Assessment: Patient presented to hospital with sepsis in this patient did have fever tachycardia source is likely right lower lobe pneumonia and likely community- acquired in view of resolution of the fever with Rocephin and Zithromax therapy though the x-ray did not show significant improvement possible hematological daily (1) Pneumonia Current Visit: Yes Status: Acute Code(s): J18.9 - PNEUMONIA, UNSPECIFIED ORGANISM SNOMED Code(s): 103704299 Plan: 1-we will obtain a sputum for Gram stain and culture 2-repeat a chest x-ray PA and lateral in the morning 3-Rocephin 1 g daily and Zithromax 250 p.o. daily We will follow on clinical condition and cultures to further adjust medication if needed Thank you for this consultation we will follow the patient along with you Time with Patient: Greater than 30
[2019-04-29] MEDS: ACETAMINOPHEN TAB 325 MG TAB PO PRN (05:42)
[2019-04-29 07:51] LABS: Basophils % (A) 0 %; Eosinophils # (A) 0.1 k/uL (0-0.7); Eosinophils % (A) 2 %; HCT 37.2 % (34.0-46.0); HGB 12.1 gm/dL (11.4-16.0); Lymphocytes # (A) 1.6 k/uL (1.0-4.8); Lymphocytes % (A) 26 %; MCH 29.1 pg (25.0-35.0); MCHC 32.6 g/dL (31.0-37.0); MCV 89.4 fL (80.0-100.0); Mean Platelet Volume 7.9; Monocytes # (A) 0.3 k/uL (0-1.0); Monocytes % (A) 4 %; Neutrophils # (A) 4.1 k/uL (1.3-7.7); Neutrophils % (A) 65 %; Platelet Count 280 k/uL (150-450); RBC 4.17 m/uL (3.80-5.40); WBC 6.3 k/uL (3.8-10.6)
[2019-04-29 07:56] VITALS: BP 116/81; TEMP 98.9
[2019-04-29 08:02] LABS: African American GFR (CKD) >90 (>60 ml/min/1.73 sqM); Anion Gap 7 mmol/L; Blood Urea Nitrogen 7 mg/dL (7-17); Calcium 8.3 mg/dL (8.4-10.2); Carbon Dioxide 25 mmol/L (22-30); Chloride 105 mmol/L (98-107); Glucose 91 mg/dL (74-99); Non-African American GFR(CKD) >90 (>60 ml/min/1.73 sqM); Potassium 4.1 mmol/L (3.5-5.1); Sodium 137 mmol/L (137-145)
[2019-04-29] MEDS: HEPARIN SODIUM,PORCINE 5,000 UNIT/ML 1 ML VIAL SQ SCH (08:18)
[2019-04-29] MEDS: PRAMIPEXOLE 1 MG TAB PO SCH (08:20)
[2019-04-29] MEDS: OSELTAMIVIR 75 MG CAP PO SCH (08:21)
[2019-04-29] MEDS: PANTOPRAZOLE 40 MG TABLET PO SCH (08:21)
[2019-04-29 08:37] VITALS: RESP 18
--- NOTE | 2019-04-29 08:42 | XR ---
EXAMINATION TYPE: XR chest 2V DATE OF EXAM: 04/29/2019 COMPARISON: 04/26/2019 INDICATION: Pneumonia TECHNIQUE: Frontal and lateral views of the chest are obtained. FINDINGS: The heart size is normal. The pulmonary vasculature is normal. Some mild residual infiltrate is in the right lower lobe. Some linear infiltrate is at the left base and along the left diaphragm may represent some atelectasis.. IMPRESSION: 1. Significant improvement of a right lower lobe pneumonia. Some mild residual may remain present. 2. Developing left lower lobe infiltrate, likely subsegmental atelectasis
[2019-04-29] MEDS ORDERED: NON FORMULARY DRUG (Omeprazole [Omeprazole] 20 MG) PO SCH (09:00)
[2019-04-29] MEDS: FORMOTEROL FUMARATE 20 MCG/2 ML NEBU INHALATION SCH (09:04)
[2019-04-29] MEDS: IPRATROPIUM-ALBUTEROL 3 ML NEB INHALATION SCH ×2 (09:04→12:22)
[2019-04-29] MEDS: BUDESONIDE 1 MG/2 ML NEBU INHALATION SCH (09:04)
[2019-04-29 09:37] VITALS: PULSE 74
[2019-04-29] MEDS ORDERED: LORATADINE-PSEUDOEPH 5-120 MG 1 EACH TAB.ER.12H PO SCH (11:30)
--- NOTE | 2019-04-29 13:45 | P.PN ---
Subjective Progress Note Date: 04/29/19 Principal diagnosis: Community acquired pneumonia, right lower lobe with associated right-sided pleural effusion On 04/29/2019 patient seen in follow-up on general medical floor. She is resting comfortably in bed, she is in no acute distress, she states she is breathing easier, t, is on 2 L of oxygen the pulse ox of 94%, no tachycardia, no altered mentation, her last episode of fever was over 24 hours ago, with a temp of 100.8F. Blood culture has shown no growth. Patient is on a combination of Rocephin and Zithromax, his chest x-ray has been reviewed showing improvement in the appearance of the right lower lobe pneumonia. His labs have been reviewed, shows CBC is within normal limits, electrolytes and renal profile were unremarkable, Influenza screen was negative Objective - Vital Signs Vital signs: Vital Signs Temp 98.9 F 04/29/19 07:00 Pulse 74 04/29/19 09:36 Resp 18 04/29/19 08:36 BP 116/81 04/29/19 07:00 Pulse Ox 94 L 04/29/19 09:08 Intake & Output 04/28/19 04/29/19 04/29/19 18:59 06:59 18:59 Other: Voiding Method Toilet # Voids 2 1 - Exam GENERAL EXAM: Alert, very pleasant, 43-year-old white female, on 2 L of oxygen with a pulse ox of 94% comfortable in no apparent distress. HEAD: Normocephalic/atraumatic. EYES: Normal reaction of pupils, equal size. Conjunctiva pink, sclera white. NOSE: Clear with pink turbinates. THROAT: No erythema or exudates. NECK: No masses, no JVD, no thyroid enlargement, no adenopathy. CHEST: No chest wall deformity. Symmetrical expansion. LUNGS: Equal air entry with bibasilar crackles, but no wheeze, rhonchi or dullness. CVS: Regular rate and rhythm, normal S1 and S2, no gallops, no murmurs, no rubs ABDOMEN: Soft, nontender. No hepatosplenomegaly, normal bowel sounds, no guarding or rigidity. EXTREMITIES: No clubbing, no edema, no cyanosis, 2+ pulses and upper and lower extremities. MUSCULOSKELETAL: Muscle strength and tone normal. SPINE: No scoliosis or deformity SKIN: No rashes CENTRAL NERVOUS SYSTEM: Alert and oriented -3. No focal deficits, tone is normal in all 4 extremities. PSYCHIATRIC: Alert and oriented -3. Appropriate affect. Intact judgment and insight. - Labs CBC & Chem 7: 04/29/19 07:12 04/29/19 07:12 Labs: Abnormal Lab Results - Last 24 Hours (Table) 04/29/19 Range/Units 07:12 Calcium 8.3 L (8.4-10.2) mg/dL C-Reactive Protein 47.0 H (<10.0) mg/L Microbiology - Last 24 Hours (Table) 04/25/19 14:57 Blood Culture - Preliminary Blood No Growth after 72 hours Assessment and Plan Plan: Assessment: #1. Acute community acquired pneumonia, right lower lobe, with associated right-sided pleural effusion #2. Possible underlying chronic obstructive pulmonary disease from previous tobacco use #3. History of rheumatoid arthritis, currently not on any immunotherapy #4. History of irritable bowel syndrome #5. History of migraine cephalgia #6. History of GERD/reflux #7. Ongoing tobacco use with nicotine addiction #8. Previous episodes of both bronchitis and pneumonia Plan: Patient is doing well, likely improving, today's chest x-ray has been reviewed with Dr. Maciel, and showing improvement in the appearance of right lower lobe pneumonia. Increase activity as tolerated, no febrile episodes in over 24 hours, patient has been treated with Zithromax and Rocephin, hemodynamically stable, tolerating activity, from pulmonary perspective she stable for discharge home today with outpatient follow-up in the office in 7-10 days I performed a history & physical examination of the patient and discussed their management with my nurse practitioner, Josselin Torres. I reviewed the nurse practitioner's note and agree with the documented findings and plan of care. Lung sounds are positive for bibasilar crackles. The findings and the impress ion was discussed with the patient. I attest to the documentation by the nurse practitioner. Time with Patient: Less than 30
--- NOTE | 2019-04-29 15:24 | PN ---
PROGRESS NOTE History: Patient name noted best with. DATE OF SERVICE: 04/29/2019 REASON FOR FOLLOWUP: Pneumonia. INTERVAL HISTORY: The patient is currently afebrile. The patient notes temperature has been yesterday morning 100.8. No fever since then the patient overall is feeling much better. Denies having any chest pain. She did have some cough. No nausea, no vomiting. No abdominal pain no diarrhea. PHYSICAL EXAMINATION: Blood pressure 150/81 with a pulse of 73, temperature 98.9. She is 96% on room air. General description is a middle-aged female, lying in bed in no distress . RESPIRATORY SYSTEM: Unlabored breathing. Decreased breath sounds, no wheeze. HEART: S1, S2. Regular rate and rhythm. ABDOMEN: Soft, no tenderness. LABS: Hemoglobin is 12.1, white count is 6.3, creatinine 0.60. CRP was 47. Blood culture has been negative. Chest x-ray this morning significant with right lower lobe pneumonia, some mild disease may be present. DIAGNOSTIC IMPRESSION AND PLAN: Patient with right lower lobe pneumonia, community-acquired. Overall, the patient clinically responding to the Rocephin and Zithromax. She will finish therapy with Ceftin 500 mg twice a day. The patient course of therapy and close outpatient followup. MMODL / IJN: [id number] /
--- NOTE | 2019-04-29 19:01 | ECHOF ---
Referral Reason:chf MEASUREMENTS -------- HEIGHT: 152.4 cm WEIGHT: 78.9 kg BP: 121/82 RVIDd: 2.8 cm (< 3.3) IVSd: 1.1 cm (0.6 - 1.1) LVIDd: 4.0 cm (3.9 - 5.3) LVPWd: 1.1 cm (0.6 - 1.1) IVSs: 1.5 cm LVIDs: 2.4 cm LVPWs: 1.6 cm LA Diam: 3.1 cm (2.7 - 3.8) LAESV Index (A-L): 17.34 ml/m Ao Diam: 2.7 cm (2.0 - 3.7) AV Cusp: 1.8 cm (1.5 - 2.6) MV EXCURSION: 16.269 mm (> 18.000) MV EF SLOPE: 76 mm/s (70 - 150) EPSS: 0.4 cm MV E Rolando: 1.36 m/s MV DecT: 129 ms MV A Rolando: 0.71 m/s MV E/A Ratio: 1.91 RAP: 5.00 mmHg RVSP: 25.55 mmHg FINDINGS -------- Sinus rhythm. This was a technically good study. The left ventricular size is normal. There is borderline concentric left ventricular hypertrophy. Overall left ventricular systolic function is normal with, an EF between 60 - 65 %. The right ventricle is normal in size. Normal LA size by volume 22+/-6 ml/m2. The right atrium is normal in size. Interatrial and interventricular septum intact. The aortic valve is trileaflet and appears structurally normal. Mild mitral regurgitation is present. Mild tricuspid regurgitation present. Right ventricular systolic pressure is normal at < 35 mmHg. There is no pulmonic regurgitation present. The aortic root size is normal. Normal inferior vena cava with normal inspiratory collapse consistent with estimated right atrial pre ssure of 5 mmHg. There is no pericardial effusion. CONCLUSIONS -------- 1. Sinus rhythm. 2. This was a technically good study. 3. The left ventricular size is normal. 4. There is borderline concentric left ventricular hypertrophy. 5. Overall left ventricular systolic function is normal with, an EF between 60 - 65 %. 6. The right ventricle is normal in size. 7. Normal LA size by volume 22+/-6 ml/m2. 8. The right atrium is normal in size. 9. Interatrial and interventricular septum intact. 10. The aortic valve is trileaflet and appears structurally normal. 11. Mild mitral regurgitation is present. 12. Mild tricuspid regurgitation present. 13. Right ventricular systolic pressure is normal at < 35 mmHg. 14. There is no pulmonic regurgitation present. 15. The aortic root size is normal. 16. Normal inferior vena cava with normal inspiratory collapse consistent with estimated right atrial pressure of 5 mmHg. 17. There is no pericardial effusion. POWDER COMPOUNDER: Tashia Negron RDCS
--- NOTE | 2019-04-30 08:24 | DS ---
DISCHARGE SUMMARY DATE OF ADMISSION: 04/25/2019 DATE OF DISCHARGE: 04/29/2019 FINAL DIAGNOSES: 1. Right lower lobe pneumonia, community-acquired, suspect Gram-negative organism. 2. Obesity, body mass index 34. 3. Irritable bowel syndrome. 4. Restless legs syndrome. 5. Chronic obstructive pulmonary disease. 6. Gastroesophageal reflux disease. 7. Chronic nicotine dependence, cigarette smoker. HOSPITAL COURSE: The patient presented to the ER with cough, shortness of breath, myalgias. The patient's has also been sick admitted to the hospital with Influenza A. The patient's influenza A and B both came back negative. Found to have pneumonia, treated with azithromycin and ceftriaxone. Today feeling much better. Afebrile. Breathing much improved. Out of bed tolerating. Tolerating a diet. Keen to go home. PHYSICAL EXAMINATION: On examination, afebrile. LUNGS: Fair air entry. CARDIOVASCULAR: First and second sounds normal. INVESTIGATIONS: White count 6.3, hemoglobin 12.1, creatinine 0.6. A 2-D echo showed an EF of 60%-65%. CONSULTATION: Dr. Morel from ID; Dr. Valdez from Pulmonary DISCHARGE MEDICATIONS: 1. Motrin 800 mg q.8 p.r.n. 2. Omeprazole 20 mg p.o. daily. 3. Mirapex 1 mg p.o. b.i.d. 4. Ventolin HFA 1 to 2 puffs q.6 p.r.n. 5. Ceftin 500 mg b.i.d. for 3 days. 6. Claritin-D 5/120 one tab q.12 hours [address] Follow up with Dr. Ray on 05/07/2019. Patient to return to work on 05/02/2019. MMODL / IJN: [id number] /
--- NOTE | 2019-05-02 02:23 | CDI ---
Documentation Clarification Form Date: 05/02/2019 From: Antony Hernandez Phone: If you have a question about this query, please contact Sarah Schwab, Motor Carrier Inspector at [phone] between 8am and 5pm. Admit Date: 04/25/2019 Discharge Date: 04/29/2019 Patient Name: Jenny Martin Visit Number: [id number] ATTENTION: The Clinical Documentation Specialists (CDI) and [facility] Coding Staff appreciate your assistance in clarifying documentation. Please respond to the clarification below the line at the bottom and electronically sign. The CDI & [facility] Coding staff will review the response and follow-up if needed. Please note: Queries are made part of the Legal Health Record. If you have any questions, please contact the author of this message via ITS. Dear Alf Flores., The patient presented with the gram negative pneumonia. WBC : 10.8 Lactic acid: 2 Blood cultures: negative Vitals signs on admission: Pulse Rate 119 H 112 H Respiratory 18 18 , O2 Sat by Pulse 98 95 Other Clinical Indicators: Treatment: Antibiotics Antibiotics: azithromycin and ceftriaxone. Other: 04/27 Dr. Jean Claude mays notes "Possible sepsis secondary to gram negative pneumonia, present on admission". In your professional opinion, please clarify if these findings signify, Sepsis ruled out SIRS, without underlying infectious process Sepsis Severe Sepsis Septic Shock Other, please specify Unable to determine Sepsis secondary to gram-negative pneumonia, POA MTDD
== END 2019-04-29 15:37 | disposition home or self-care (01) | DRG 871 ==
LOC: EC 12:40 → 6PED 14:55 → 4SSUR 04-27 22:02
PROVIDERS: ADMIT Hospitalist; ATTEND Hospitalist
DX: A41.50 Gram-negative sepsis, unspecified (principal); J15.6 Pneumonia due to other Gram-negative bacteria; J44.0 Chronic obstructive pulmonary disease with (acute) lower respiratory infection; J90 Pleural effusion, not elsewhere classified; E66.9 Obesity, unspecified; E78.5 Hyperlipidemia, unspecified; F17.210 Nicotine dependence, cigarettes, uncomplicated; G25.81 Restless legs syndrome; G43.909 Migraine, unspecified, not intractable, without status migrainosus; K21.9 Gastro-esophageal reflux disease without esophagitis; K58.9 Irritable bowel syndrome, unspecified; M06.9 Rheumatoid arthritis, unspecified; M79.7 Fibromyalgia; Z88.5 Allergy status to narcotic agent; Z88.2 Allergy status to sulfonamides; Z88.8 Allergy status to other drugs, medicaments and biological substances; Z87.01 Personal history of pneumonia (recurrent); Z98.890 Other specified postprocedural states; Z68.34 Body mass index [BMI] 34.0-34.9, adult
CPT/HCPCS: 36415; 71046; 80048; 81001; 83605; 83880; 85025; 86140; 87040; 87502; 93306; 94640; 94760; 96361; 96365; 96375; 99284

== ENCOUNTER 2019-10-08 10:26 | Emergency (ER) | payer MEDICARE, OTHER ==
[2019-10-08 10:31] VITALS: BP 133/91; PULSE 96; RESP 20; TEMP 98.3
--- NOTE | 2019-10-08 10:53 | ED ---
General Adult HPI - General Chief complaint: Upper Respiratory Infection Stated complaint: Cough INQUICKER Time Seen by Provider: 10/08/19 10:31 Source: patient Mode of arrival: ambulatory Limitations: no limitations - History of Present Illness Initial comments: Patient is a 44-year-old female presenting to emergency Department with complaints of a cough that has been increasing over the past 3 days. She states about 5 days ago she had a mild sore throat that lasted approximately 2 days and then a dry cough started. The patient states she also has some mild ear pressure and some congestion. She denies any fever or chills. She denies history of asthma, but is being worked up for possible COPD. She isn't every day smoker. She was recently hospitalized in March for multifocal pneumonia. She states she is nauseous but states that her normal. She denies vomiting, diarrhea, abdominal pain. She states her daughter is immunocompromise at home and does want to make sure she does not have COVID. She has no further complaints at this time. Upon arrival to the ER, her vital signs are stable. - Related Data Home Medications Medication Instructions Recorded Confirmed Ibuprofen [Motrin] 800 mg PO Q8HR PRN 05/06/14 10/08/19 Omeprazole 20 mg PO DAILY 04/25/19 10/08/19 Pramipexole [Mirapex] 1 mg PO BID 04/25/19 08 Allergies Allergy/AdvReac Type Severity Reaction Status Date / Time morphine Allergy Itching Verified 10/08/19 11:31 Sulfa (Sulfonamide Allergy Rash/Hives Verified 10/08/19 11:31 Antibiotics) sulfamethoxazole Allergy Rash/Hives Verified 10/08/19 11:31 [From Bactrim] trimethoprim [From Bactrim] Allergy Rash/Hives Verified 10/08/19 11:31 Review of Systems ROS Statement: Those systems with pertinent positive or pertinent negative responses have been documented in the HPI. ROS Other: All systems not noted in ROS Statement are negative. Past Medical History Past Medical History: Pneumonia Additional Past Medical History / Comment(s): past hx. pneumonia, IBS, hx migraines History of Any Multi-Drug Resistant Organisms: None Reported Past Surgical History: Back Surgery, Orthopedic Surgery Past Anesthesia/Blood Transfusion Reactions: Motion Sickness, Postoperative Nausea & Vomiting (PONV) Additional Past Anesthesia/Blood Transfusion Reaction / Comment(s): felt like had flu sx. after last pain procedure for 48 hours Past Psychological History: No Psychological Hx Reported Smoking Status: Current every day smoker Past Alcohol Use History: Occasional Past Drug Use History: Marijuana General Exam - General Exam Comments Initial Comments: GENERAL: Patient is well-developed and well-nourished. Patient is nontoxic and in no acute distress. HEAD: Atraumatic, normocephalic. EYES: Pupils equal round and reactive to light, extraocular movements intact, sclera anicteric, conjunctiva are normal. Eyelids were unremarkable. ENT: TMs normal, nares patent, oropharynx clear without exudates. Moist mucous membranes. NECK: Normal range of motion, supple without lymphadenopathy or JVD. LUNGS: Unlabored respirations. Breath sounds clear to auscultation bilaterally and equal. No wheezes rales or rhonchi. HEART: Regular rate and rhythm without murmurs, rubs or gallops. ABDOMEN: Soft, nontender, normoactive bowel sounds. No guarding, no rebound. No masses appreciated. : Deferred MUSCULOSKELETAL: Normal extremities with adequate strength and normal range of motion, no pitting or edema. No clubbing or cyanosis. NEUROLOGICAL: Normal speech, normal gait. PSYCH: Normal mood, normal affect. SKIN: Warm, Dry, normal turgor, no rashes or lesions noted. Limitations: no limitations Course Vital Signs 10/08/19 10:27 Temperature 98.3 F Pulse Rate 96 Respiratory 20 Rate Blood Pressure 133/91 O2 Sat by Pulse 98 Oximetry Medical Decision Making - Medical Decision Making Patient is a 44-year-old female here for a cough 3 days. Her vitals are stable. She does have concern for Covid. She had recent hospital admission in March for multifocal pneumonia. Chest x-ray today shows no acute process. I discussed with patient this is most likely a viral upper respiratory. She may continue with her current medications for her symptoms. Patient was tested for Covid, this is pending. Patient is in agreement with this plan of care. She is stable for discharge. Return parameters discussed with the patient she verbalized understanding. Case discussed with Dr. Decker. Disposition Clinical Impression: Cough Disposition: HOME SELF-CARE Condition: Stable Instructions (If sedation given, give patient instructions): Cold Symptoms (ED) Additional Instructions: Please return to the Emergency Department if symptoms worsen or any other concerns. Continue with [id number] medications for cough. Follow up with PCP as needed. Is patient prescribed a controlled substance at d/c from ED?: No Referrals: Stephen Ray DO [Primary Care Provider] - 1-2 days
--- NOTE | 2019-10-08 11:27 | XR ---
EXAMINATION TYPE: XR chest 2V DATE OF EXAM: 10/08/2019 COMPARISON: 04/29/2019 HISTORY: 44-year-old female with cough TECHNIQUE: PA and lateral views FINDINGS: The cardiomediastinal silhouette, aorta, and pulmonary vasculature are within normal limits. Lungs an d pleural spaces are clear. IMPRESSION: No acute cardiopulmonary process.
== END 2019-10-08 12:03 | disposition home or self-care (01) ==
LOC: EC 10:26
DX: R05 Cough (principal); R11.0 Nausea; Z20.828 Contact with and (suspected) exposure to other viral communicable diseases; K58.9 Irritable bowel syndrome, unspecified; F17.200 Nicotine dependence, unspecified, uncomplicated; Z79.899 Other long term (current) drug therapy; Z88.5 Allergy status to narcotic agent; Z88.2 Allergy status to sulfonamides; Z88.1 Allergy status to other antibiotic agents; Z87.01 Personal history of pneumonia (recurrent)
CPT/HCPCS: 71046; 99283; U0003

== ENCOUNTER → 2020-01-05 | Outpatient (CLI) | payer OTHER ==
--- NOTE | 2020-01-05 08:24 | XR ---
EXAMINATION TYPE: XR lumbar spine 2 or 3V DATE OF EXAM: 01/05/2020 CLINICAL HISTORY: pain TECHNIQUE: Three views of the lumbar spine are submitted. COMPARISON: None. FINDINGS: Again noted are fusion changes at L5-S1 with grade 1 anterolisthesis measuring approximately 9 mm unc hanged from prior study. The remaining levels demonstrate normal alignment and disc space height. IMPRESSION: Stable postoperative appearance at the L5-S1 level.
== END | disposition home or self-care (01) ==
LOC: RADXRMAIN 07:59
PROVIDERS: ATTEND Family Medicine
DX: Z98.1 Arthrodesis status (principal)
CPT/HCPCS: 72100

== ENCOUNTER → 2020-04-10 | Outpatient (CLI) | payer OTHER ==
--- NOTE | 2020-04-11 09:27 | MR ---
EXAMINATION TYPE: MR lumbar spine wo/w con DATE OF EXAM: 04/10/2020 COMPARISON: 11/20/2013 HISTORY: Low back pain for 6 months that travels down right side. TECHNIQUE: Multiecho multiplanar images of the lumbar spine were obtained with without contrast. There are postsurgical changes interdisc prosthesis and posterior fusion at the L5-S1 level. There is a slight anterolisthesis of L5 on S1. The lumbar vertebral segments from L1 to L4 are normal in height and alignment and there is no fractu re or subluxation. The intervertebral discs from L1 through L5 are normal in signal intensity and there is no significan t degenerative disc disease. There is no focal disc protrusion or herniation. The spinal canal is widely patent and there is no spinal stenosis. The neuroforamina from L1 through L5 are patent. Following contrast administration, there is no pathological enhancement. IMPRESSION: Postsurgical changes at the L5-S1 level as described above. There has been no interval change since t he prior study. There is no lumbar disc herniation or spinal stenosis.
== END | disposition home or self-care (01) ==
LOC: RADMRIMAIN 14:28
PROVIDERS: ATTEND Family Medicine
DX: M54.5 Low back pain (principal); Z98.890 Other specified postprocedural states
CPT/HCPCS: 72158; A9585